=== PATIENT | male | born 1955 | race Caucasian/White ===

== ENCOUNTER 2016-11-06 10:36 | Inpatient (IN) | payer OTHER ==
[~2016-11-06] VITALS: Ht 172.7 cm; Wt 96.4 kg
--- NOTE | ~2016-11-06 | OR ---
PATIENT'S NAME: MATY GREEN [facility] AGE: 60 Y [address] ROOM: [place] [address] LOCATION: [facility] ADMIT DATE: 11/17/2016 OR/Procedure Report DISCHARGE DATE: FAMILY PHYSICIAN: Vincenzo Del Rio MD ATTENDING PHYSICIAN: DAT LEON SURGEON: Dat Leon MD INFORMATICS PHARMACIST: 1. Porfirio Coleman PA-C. 2. Efe Springer CST/HAKEEM. DATE OF PROCEDURE: 11/17/2016 PRE-OP DIAGNOSIS: Primary osteoarthritis, left hip. POST-OP DIAGNOSIS: Primary osteoarthritis, left hip. OPERATION: Left total hip arthroplasty. ANESTHESIA: Spinal anesthesia plus subcutaneous and periarticular local anesthesia (ropivacaine with epinephrine and Toradol). ESTIMATED BLOOD LOSS: Approximately 250 mL. DRAIN: None. SPECIMEN: None. COMPLICATIONS: None. IMPLANTS: Radha Trident Tritanium size 56 mm hemispherical uncemented acetabular shell with 1 dome hole cover and no screws. Radha X3 neutral acetabular polyethylene liner with 36 mm inner diameter. Radha Accolade II size 7, high offset, uncemented femoral component. A 36 mm diameter Biolox femoral head with +5 mm neck length. INDICATION FOR SURGERY: The patient is a 60-year-old male who presents with advanced left hip primary osteoarthritis and associated severely compromised activities of daily living. The patient has decided to proceed with hip replacement after having been thoroughly counseled regarding the associated risks, benefits, and limitations. We have specifically reviewed the risks and implications of infection, deep venous thrombosis, pulmonary embolism, mortality, neurovascular complications, blood transfusion (and associated potential for disease transmission or transfusion reaction), stiffness, instability, leg length discrepancy, mechanical deterioration of the components (due to wear and to loosening), and the potential need for revision. PATIENT'S NAME: MATY GREEN [facility] AGE: 60 Y [address] ROOM: [place] [id number] LOCATION: [facility] ADMIT DATE: 11/17/2016 OR/Procedure Report DISCHARGE DATE: FAMILY PHYSICIAN: Vincenzo Del Rio MD ATTENDING PHYSICIAN: DAT LEON DESCRIPTION OF PROCEDURE: The patient was positioned in a lateral decubitus position with the left side up after administration of anesthesia and prophylactic antibiotics. An axillary roll was placed and the non-operative leg was well padded. The pelvis was locked perpendicularly to the floor on a pegboard. The hip and entire operative extremity were prepped and draped with vigilant sterile technique. The patient's name as well as the intended operative side and procedure were confirmed with a verbal time-out involving myself, the circulating nurse, the scrub nurse, and the anesthesiologist. The left hip was approached through a standard posterolateral incision. The fascia rodney and the gluteus alejandra fascia were sharply divided in line with the overlying skin incision. The sciatic nerve was identified and was vigilantly protected throughout the entire case. The short external rotators and posterior capsule were divided from their respective femoral insertions and tagged with four #1 Ethibond sutures for later repair. The hip was posteriorly dislocated with combined flexion, adduction, and internal rotation. The femoral neck osteotomy was performed with an oscillating saw. Inspection of the femoral head demonstrated full-thickness loss of articular cartilage involving over 50% of its cephalad weightbearing surface. There was no femoral head collapse. There was extensive surrounding high-grade partial thickness articular cartilage loss. Circumferential acetabular exposure was obtained. Examination of the acetabulum demonstrated a large paralabral acetabular degenerative cyst at the 12 o'clock position. There was extensive anterosuperior acetabular labral tearing. There was extensive full-thickness articular cartilage loss involving over 50% of the dome of the acetabulum. There was a moderate-sized medial acetabular osteophyte. There was a moderate effusion consisting of benign-appearing translucent synovial fluid. Remnants of the acetabular labrum were sharply thoroughly excised. The acetabulum was sequentially progressively reamed up to 53 mm with hemispherical power reamers. The final acetabular shell was impacted into position in 20 degrees of anteversion and 45 degrees of inclination. An excellent press-fit was obtained. No supplemental dome screw fixation was necessary. A neutral trial liner was inserted. Attention was next focused upon femoral preparation. The femoral canal initiator was utilized. No reaming was performed (except for with the canal finder). The femoral canal was subsequently sequentially progressively broached up to a size 7. The 7 broach obtained excellent axial and rotational stability. Trial reductions with the above specified construct yielded acceptable stability and acceptable reproduction of leg length and offset. PATIENT'S NAME: MATY GREEN [facility] AGE: 60 Y [address] ROOM: [id number] [place], [place] [address] LOCATION: [facility] ADMIT DATE: 11/17/2016 OR/Procedure Report DISCHARGE DATE: FAMILY PHYSICIAN: Vincenzo Del Rio MD ATTENDING PHYSICIAN: DAT LEON All trial components were removed. The final acetabular liner was inserted with excellent circumferential visualization of its locking mechanism to assure adequate deployment. The final femoral component was impacted into position. The femoral component achieved excellent axial and rotational stability. The trunnion of the femoral component was vigilantly protected prior to placement of the femoral head. The trunnion of the femoral component was thoroughly cleaned and dried prior to placement of the femoral head. The incision was thoroughly irrigated with bacteriostatic pulsatile saline lavage multiple times throughout the case. The entire joint space was thoroughly inspected and thoroughly irrigated to assure that there was no residual debris of any sort. A final reduction was then performed. After final reduction, the hip could be firmly externally rotated in full extension and zero degrees of abduction without anterior subluxation. In neutral rotation and zero degrees of abduction, the hip could be firmly flexed to 120 degrees without instability. At 90 degrees of flexion and zero degrees abduction, the hip could be internally rotated to 55 degrees before there was any hint of posterior subluxation. The posterior capsule and short external rotators were repaired through two drill holes in the posterior aspect of the greater trochanter. The fascia rodney and gluteus alejandra fascia were closed with multiple simple and [id number] interrupted # 1 Ethibond and #1 Vicryl sutures. Subcutaneous tissues were thoroughly re-irrigated with bacteriostatic pulsatile saline lavage. Subcutaneous tissues were re-approximated with simple buried interrupted #0 Vicryl sutures. The skin was closed with superficial buried interrupted 2-0 Vicryl sutures followed by a running subcuticular 3-0 Monocryl suture, followed by Octylseal, followed by Steri- Strips with benzoin, followed by an occlusive Mepilex dressing. There were no intra-operative complications. It should be noted that the physician's bankruptcy assistant played an active, integral role throughout this entire operation. By providing expert retraction, they greatly facilitated and expedited safe and effective exposure of the proximal femur and acetabulum for preparation and implantation of the components. They were also actively involved in the patient's positioning, prepping and draping, as well as wound closure. PATIENT'S NAME: MATY GREEN [facility] AGE: 60 Y [address] ROOM: [id number] [place] [id number] LOCATION: [facility] ADMIT DATE: 11/17/2016 OR/Procedure Report DISCHARGE DATE: FAMILY PHYSICIAN: Vincenzo Del Rio MD ATTENDING PHYSICIAN: DAT LEON MD ZARA EVERETT/modl /[id number] d: 11/17/162007 t: 11/18/16 2114, OPERATIVE SUMMARY
[2016-11-06] MEDS ORDERED: ULTRAM50 MG PO ×2 (11:05)
[2016-11-06] MEDS ORDERED: AMBIEN10 MG PO (11:06)
[2016-11-06] MEDS ORDERED: SEROQUEL50 MG PO (11:17)
[2016-11-06] MEDS ORDERED: PRAVACHOL80 MG PO (11:17)
[2016-11-06] MEDS ORDERED: PROTONIX40 MG PO (11:18)
[2016-11-06] MEDS ORDERED: NORVASC10 MG PO (11:18)
[2016-11-06] MEDS ORDERED: THERA-VITE W/ B1 TAB PO (11:19)
[2016-11-06] MEDS ORDERED: XANAX0.5 MG PO (11:19)
--- NOTE | 2016-11-06 12:00 | NUR ---
MEET WITH PATIENT IN OUTPT PT. ROSEANNA IS SCHEDULED FOR LEFT TOTAL HIP BY DR. LEON ON 11/27/16. PATIENT LIVES IN OWN HOME WITH SPOUSE. HE HAS 13 STEPS IN HIS HOUSE THTA HE HAS TO USE TO GO TO BEDROOM AND BATHROOM. HE DOES NOT HAVE A FRONT WHEELED WALKER, HE IS GOING TO GO TO [employer] TO SEE IF HE CAN GET ONE FROM THERE. PATIENT IS PLANNING ON RETURNING HOME WITH HELP FROM HIS SPOUSE, HE DOES NOT ANTICIPATE ANY DISCHARGE NEEDS AT THIS TIME. CM WILL CONT TO FOLLOW NEEDED.
--- NOTE | 2016-11-17 15:54 | NUR ---
Introduced self/role to patient and . Reviewed and encouraged use of IS at least 10x every hour. Verbalizes understanding. Has foot pumps and TEDs on bilaterally. Encouraged waving of feet. Patient has crutches at bedside. Reports he is familiar with use and will be necessary to navigate around his home. Reports his bathroom/bedroom are ~13 steps up from main floor. Encouraged him to discuss with physical therapy. Reports he has other equipment from prior hip surgery. Plans to return home on Thursday afternoon with help from . Will follow and assist with identified needs.
--- NOTE | 2016-11-17 16:07 | NUR ---
Significant Event:Came up from PACU at 1430. AOx3. VSS. CSM WNL. Mepilex dressing to L)hip C/D/I. On room air. Patient refuses ice to hip. Dilaudid given for anticipated pain. Patient is confidential. Does not want any vistors but is compliant with cares. Has not voided yet. Follow up:
--- NOTE | 2016-11-18 01:59 | NUR ---
Significant Event: Dressing is clean, dry and intact. CSM WNL. Voids without difficulty. 1 assist with transfers. Dilaudid last at 013. On room air. Patient is confidential. Dilaudid IV at 2112. Valium at 2112. Impulsive. Bed alarm and tabs alarm. Follow up:
--- NOTE | 2016-11-18 10:32 | NUR ---
[id number] [facility] Nursing Students, monitored assessments, documentation and medication administration
[2016-11-18] MEDS ORDERED: TYLENOL EXTRA500 MG PO (15:55)
[2016-11-18] MEDS ORDERED: COLACE100 MG PO (15:58)
[2016-11-18] MEDS ORDERED: MIRALAX17 GM PO (16:01)
[2016-11-18] MEDS ORDERED: XARELTO10 MG PO (16:03)
[2016-11-18] MEDS ORDERED: VALIUM5 MG PO (16:07)
--- NOTE | 2016-11-18 16:18 | NUR ---
Introduced self and CM role to patient. Pt stated he had DME at home to asisst him. Pt was very talkative and in good spirits, we visited and had a nice conversation for about ten minutes. No needs or concerns stated. Plan to discharge to home with today at 1730.
--- NOTE | 2016-11-18 18:38 | NUR ---
Dismissal Note: Ambulates with SBA and walker. Dressing C/D/I. Ice at all times. Ultram 50mg and Tylenol 1000mg last at 1745. Lazarus education given with dismissal instructions, patient states understanding. IV d/cd. Dismissed to home with .
== END 2016-11-18 18:40 | disposition disaster alternative care site (69) | DRG 470 ==
LOC: GPOC 10:36 → G3N 11-07 10:00 → EDSTATUS 11-17 10:00 → G3N 11-17 10:00
PROVIDERS: ADMIT Orthopaedic Surgery
PROC: 0SRB04A Replacement of Left Hip Joint with Ceramic on Polyethylene Synthetic Substitute, Uncemented, Open Approach (ICD-10-PCS; principal; 2016-11-17)
DX: M16.12 Unilateral primary osteoarthritis, left hip (principal); E66.9 Obesity, unspecified; I10 Essential (primary) hypertension; F32.9 Major depressive disorder, single episode, unspecified; G47.33 Obstructive sleep apnea (adult) (pediatric); F10.21 Alcohol dependence, in remission; Z68.32 Body mass index [BMI] 32.0-32.9, adult; Z86.73 Personal history of transient ischemic attack (TIA), and cerebral infarction without residual deficits; Z96.641 Presence of right artificial hip joint; Z87.11 Personal history of peptic ulcer disease; Z96.652 Presence of left artificial knee joint; Z87.891 Personal history of nicotine dependence; E78.2 Mixed hyperlipidemia
CPT/HCPCS: C1776; J0690; J1100; J1170; J1885; J2001; J2795; J7030